=== PATIENT | female | born 1930 | race Caucasian/White ===

== ENCOUNTER → 2017-02-04 | Outpatient (CLI) | payer MEDICARE, BC ==
[2016-02-24 09:08] VITALS: BP 132/57
[~2017-02-04] MED LIST: ACET500T33 PO; ALBU0.63 NEB; AMLO5TAB2 PO; ASPI325T4 PO; CEFP200T PO; CEPH-264 PO; FLUT1AER INH; GABA-586 PO; GARL1TAB PO; LEVO125T5 PO; LEVO75TA PO; LISI40TA PO; MECL12.52 PO; MULT-658 PO; NEBI10TA3 PO; NITR0.4T6 SL
--- NOTE | 2017-02-04 16:20 | RAD ---
Indication fall, pain. AP and frog leg views of the right hip were obtained. Orthopedic screws are noted extending through the intertrochanteric area into the head. No complication is seen. No acute bony finding is apparent IMPRESSION: No acute finding
--- NOTE | 2017-02-04 16:33 | RAD ---
Indication fall, pain. AP and frog leg views of the left hip were obtained. Orthopedic screws are noted in the hip joint. No complication is seen. No acute bony finding is apparent. IMPRESSION: No acute finding
--- NOTE | 2017-02-04 16:36 | RAD ---
Indication fall. Pain. Internally and externally rotated views of the left shoulder as well as a Y view were obtained. No acute or significant bony finding is seen
== END | disposition home or self-care (01) ==
LOC: DXRAD 15:41
PROVIDERS: ATTEND Nurse Practitioner Family
DX: M25.551 Pain in right hip (principal); M25.552 Pain in left hip; M25.512 Pain in left shoulder; W19.XXXD Unspecified fall, subsequent encounter
CPT/HCPCS: 73030; 73502

== ENCOUNTER → 2017-04-11 | Outpatient (CLI) | payer MEDICARE, BC ==
[2016-02-24 09:08] VITALS: BP 132/57
[~2017-04-11] MED LIST changes: -ASPI325T4 PO; +ASPI325T8 PO; +NITR0.4T22 SL; -NITR0.4T6 SL
--- NOTE | 2017-04-11 16:19 | RAD ---
Right knee, 3 views, 04/11/2017: History: Fall, acute right knee pain The bony structures are demineralized. There is mild marginal spurring at the knee joint and at the patellofemoral articulation. Chondrocalcinosis is present. No fracture or dislocation is identified. No joint effusion is seen. Arterial calcifications are noted. IMPRESSION: 1. Demineralization. 2. Degenerative change with chondrocalcinosis. 3. No acute bony abnormality is detected.
== END | disposition home or self-care (01) ==
LOC: DXRADRC 11:35
PROVIDERS: ATTEND Nurse Practitioner Family
DX: M11.261 Other chondrocalcinosis, right knee (principal); M81.0 Age-related osteoporosis without current pathological fracture; Z91.81 History of falling
CPT/HCPCS: 73562

== ENCOUNTER → 2017-08-04 | Outpatient (CLI) | payer MEDICARE, BC ==
[2016-02-24 09:08] VITALS: BP 132/57
[~2017-08-04] MED LIST changes: -GARL1TAB PO; +GARL1TAB2 PO
--- NOTE | 2017-08-04 16:15 | RAD ---
DATE: August 04, 2017 EXAM: MAMMO SHILPA SCREEN LT HISTORY: History of right mastectomy 27 years ago for breast cancer. COMPARISON: 2014 and 2015 This study was interpreted with the benefit of Computerized Aided Detection (CAD). 2-D digital mammographic views of the left breast were performed in the CC and MLO projections. 3-D digital tomosynthesis of the left breast was performed in the CC and MLO projections and reviewed on a computer workstation. FINDINGS: The breast parenchyma is heterogeneously dense. There are no new dominant suspicious masses, suspicious microcalcifications or evidence of architectural distortion. IMPRESSION: Stable mammogram of the left breast. There are no mammographic indicators for malignancy on the left side. BI-RADS CATEGORY: 1 NEGATIVE RECOMMENDED FOLLOW-UP: 12M 12 MONTH FOLLOW-UP PQRS compliance statement: Patient information was entered into a reminder system with a target due date August 05, 2018 for the next mammogram. Mammography is a sensitive method for finding small breast cancers, but it does not detect them all and is not a substitute for careful clinical examination. A negative mammogram does not negate a clinically suspicious finding and should not result in delay in biopsying a clinically suspicious abnormality. "Our facility is accredited by the [employer] Mammography Program." The patient's breast density may affect the ability of mammography to detect breast cancer. There are 4 categories of breast density, A, B, C and D. Breast density A means that most of the breast tissue is replaced with adipose tissue and therefore is not dense. Breast density B means that the breast tissue is mildly dense and scattered. Breast density C means that the breast tissue is heterogeneously dense. Breast density D means that the breast tissue is very dense. Breast densities especially C and D may decrease the sensitivity of mammography to detect breast cancer. Therefore, the patient may benefit from 3-D breast mammography (3D breast tomography) as a part of their screening mammogram. Insurance may or may not pay for this additional imaging. The patient's breast density based on today's mammogram is category C.
== END | disposition home or self-care (01) ==
LOC: MAMMO 13:08
PROVIDERS: ATTEND Family Medicine
DX: Z12.31 Encounter for screening mammogram for malignant neoplasm of breast (principal); Z85.3 Personal history of malignant neoplasm of breast; Z90.11 Acquired absence of right breast and nipple
CPT/HCPCS: 77063; G0202; 77067

== ENCOUNTER 2020-09-07 16:21 | Emergency (ER) | payer MEDICARE, BC ==
[~2020-09-07] VITALS: Ht 165.1 cm; Wt 63.0 kg
[~2020-09-07 16:21] MED LIST changes: +AMLO-186 PO; -AMLO5TAB2 PO; -MECL12.52 PO; +MECL12.573 PO
--- NOTE | 2020-09-07 17:12 | PHYS DOC ---
Past History Past Medical History: CAD, Cancer, Diabetes, Hypertension, Hypothyroid, OR, Other Past Surgical History: Cancer Surgery, Other Additional Past Surgical Histo: hip surg Alcohol Use: None Drug Use: None Adult General Chief Complaint Chief Complaint: HAND PROBLEM HPI HPI Patient is a 89-year-old female presents to the emergency department today complaining of left hand pain after a fall. Patient states she tripped and fell coming out of her hair appointment today just prior to her arrival. Patient states that she skinned up her hands so she put Band-Aids on them prior to her arrival. Patient denies loss of consciousness, denies head pain or neck pain, denies pain to other extremities. Patient denies any other complaints or physical symptoms. Review of Systems Review of Systems 14 body systems of review of systems have been reviewed. See HPI for pertinent positives and negative responses, otherwise all other systems are negative, nonpertinent or noncontributory. Current Medications Current Medications The nursing documentation for updated med list. Allergies Allergies Allergies Coded Allergies Type Severity Reaction Last Updated Verified Penicillins Allergy Intermediate 02/22/16 Yes ciprofloxacin Allergy Intermediate 02/22/16 Yes morphine Allergy Intermediate 02/22/16 Yes Physical Exam Physical Exam Constitutional: Well developed, well nourished, no acute distress, non-toxic appearance. HENT: Normocephalic, atraumatic, bilateral external ears normal, oropharynx moist, no oral exudates, nose normal. Approximately 4 cm in diameter hematoma to the forehead superior aspect just to the right of center line just inferior to the hairline, patient states it does not hurt but she knows it is there, patient did adamantly admit again she did not lose consciousness. Eyes: PERRLA, EOMI, conjunctiva normal, no discharge. Neck: Normal range of motion, no tenderness, supple, no stridor. Cardiovascular:Heart rate regular rhythm, no murmur Lungs & Thorax: Bilateral breath sounds clear to auscultation Abdomen: Bowel sounds normal, soft, no tenderness, no masses, no pulsatile masses. Skin: Warm, dry, no erythema, no rash. Minor less than 2 mm abrasions to the left thumb, right thumb, left pinky finger. Non bleeding, no signs of infectious process. Back: No tenderness, no CVA tenderness. Extremities: No tenderness, no cyanosis, no clubbing, ROM intact, no edema. Swelling to the left middle finger middle phalangeal area distal cap refill less than 2 seconds, no loss of movement or sensation, full AROM/PROM. Pain to palpation of the right distal humerus, no deformity noted, no crepitus noted. Neurologic: Alert and oriented X 3, normal motor function, normal sensory function, no focal deficits noted. Psychologic: Affect normal, judgement normal, mood normal. Current Patient Data Vital Signs Vital Signs Date Time Temp Pulse Resp B/P (MAP) Pulse Ox O2 Delivery O2 Flow Rate FiO2 09/07/20 16:21 98.9 95 20 167/105 (125) 90 Room Air Lab Results Laboratory Tests Test 09/07/20 17:26 09/07/20 18:08 09/07/20 19:45 White Blood Count 13.4 x10^3/uL Red Blood Count 4.37 x10^6/uL Hemoglobin 12.9 g/dL Hematocrit 39.8 % Mean Corpuscular Volume 91 fL Mean Corpuscular Hemoglobin 29 pg Mean Corpuscular Hemoglobin Concent 32 g/dL Red Cell Distribution Width 13.2 % Platelet Count 328 x10^3/uL Neutrophils (%) (Auto) 69 % Lymphocytes (%) (Auto) 23 % Monocytes (%) (Auto) 6 % Eosinophils (%) (Auto) 2 % Basophils (%) (Auto) 1 % Neutrophils # (Auto) 9.2 x10^3uL Lymphocytes # (Auto) 3.1 x10^3/uL Monocytes # (Auto) 0.8 x10^3/uL Eosinophils # (Auto) 0.3 x10^3/uL Basophils # (Auto) 0.1 x10^3/uL Sodium Level 129 mmol/L Potassium Level 6.5 mmol/L 4.5 mmol/L Chloride Level 95 mmol/L Carbon Dioxide Level 27 mmol/L Anion Gap 7 Blood Urea Nitrogen 12 mg/dL Creatinine 0.9 mg/dL Estimated GFR (Cockcroft-Gault) 59.1 Glucose Level 181 mg/dL Calcium Level 9.0 mg/dL Troponin I Quantitative < 0.017 ng/mL Urine Collection Type Unknown Urine Color Straw Urine Clarity Clear Urine pH 5.5 Urine Specific Arona 1.025 Urine Protein Neg Urine Glucose (UA) Neg mg/dL Urine Ketones (Stick) Trace mg/dL Urine Blood Neg Urine Nitrite Neg Urine Bilirubin Neg Urine Urobilinogen Dipstick 0.2 mg/dL Urine Leukocyte Esterase Neg Urine RBC 6-10 /HPF Urine WBC 1-4 /HPF Urine Squamous Epithelial Cells None /LPF Urine Bacteria 0 /HPF Current Medications Medications (Trade) Dose Ordered Sig/Jennifer Route PRN Reason Start Time Stop Time Status Last Admin Dose Admin Acetaminophen (Tylenol) 1,000 mg 1X ONCE PO 09/07/20 20:00 09/07/20 20:01 DC 09/07/20 20:11 EKG EKG EKG performed at 1730 by house respiratory therapy staff, heart rate 88 bpm, normal sinus rhythm without ectopy, [place] interval 0.184, QTc interval 0.412, no STEMI, no ischemia, no ACS noted, EKG interpreted by ED attending Dr. Guadarrama Radiology/Procedures Radiology/Procedures []STATUS: REG ERORD. PHYSICIAN: JOHN FERGUSON APRN REASON: FALL, FOREHEAD TRAUMA/CONTUSION PROCEDURE: CT HEAD AND CERVICAL SPINE WO Exam: CT head and cervical spine INDICATION: Fall, forehead trauma TECHNIQUE: Sequential axial images through the head and cervical spine were obtained without the administration of IV contrast. Comparisons: None FINDINGS: Head: No focal parenchymal lesion or hemorrhage is identified. There is no midline shift or sulcal effacement. Patchy hypodensity in the periventricular white matter. 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 No acute vascular territory infarction is identified. Floyd-white distinction is preserved. The ventricular system is within normal limits without compression hydrocephalus. The basal cisterns are well maintained. Extracranial soft tissue scalp contusion overlying the right frontal region. The visualized portions of the paranasal sinuses and mastoid air cells are well-pneumatized. No acute fractures. Cervical spine: Vertebral body heights and alignment are well-maintained. Fracture to the cervical spine is identified. Multilevel spondylotic change in cervical spine with degenerative disc disease greatest at C4-C5 and C5-C6. Visualized paraspinal soft tissues are unremarkable. IMPRESSION: 1. Extracranial soft tissue scalp contusion overlying the right frontal region. No underlying osseous or intracranial abnormality. 2. Negative CT C-spine for acute traumatic injury. Exposure: One or more of the following in the visualized dose reduction techniques were utilized for this examination: 1. Automated exposure control 2. Adjustment of the MA and/or KV according to patient size Use of iterative of reconstructive technique Electronically signed by: Jerry Zavala MD (09/07/2020 6:14 PM) [facility] DI[facility] AND SIGNED BY: JERRY ZAVALA MD DATE: 09/07/201813 CC: JOHN FERGUSON APRN; SHELBI GUADARRAMA DO; EDWIN LAWTON MD ~MTH0 0 STATUS: REG ER ORD. PHYSICIAN: JOHN FERGUSON APRN REASON: FALL, DISTAL HUMERAL PAIN PROCEDURE: HUMERUS RIGHT Exam: Right humerus 2 views INDICATION: Fall, distal humerus TECHNIQUE: Frontal and lateral views of the right humeral Comparisons: None FINDINGS: Bone mineralization is normal. No acute or healed fractures. Soft tissues are unremarkable. Joint spaces are well-maintained. IMPRESSION: No acute osseous abnormality. Electronically signed by: Jerry Zavala MD (09/07/2020 7:05 PM) [facility] DI[facility]ATED AND SIGNED BY: JERRY ZAVALA MD DATE: 09/07/201904 CC: JOHN FERGUSON APRN; SHELBI GUADARRAMA DO; EDWIN LAWTON MD ~MTH0 0 STATUS: REG ER ORD. PHYSICIAN: JOHN FERGUSON APRN REASON: FALL, MIDDLE FINGER SWELLING PROCEDURE: HAND RIGHT 3V HAND RIGHT 3V Clinical Indication: Reason: FALL, MIDDLE FINGER SWELLING / Spl. Instructions: pt unable to remove ring from hand / History: Comparison: None. Findings: There is acute traumatic longitudinal fracture involving the distal neck and the midshaft of the fourth metacarpal. No intra-articular extension is seen. The fracture is nondisplaced. No dorsal soft tissue swelling of the hand. There is mild arthropathy of the hand for patient age. There is diffuse demineralization. There is mild soft tissue swelling of the third finger. IMPRESSION: 1. Acute traumatic nondisplaced fracture of the fourth metacarpal. Electronically signed by: Estiven Rose MD (09/07/2020 7:01 PM) [facility] DICTATED AND SIGNED BY: ESTIVEN ROSE MD DATE: 09/07/201900 CC: JOHN FERGUSON APRN; SHELBI GUADARRAMA DO; EDWIN LAWTON MD ~MTH0 0 REASON: FALL, LOW O2 SAT PROCEDURE: CHEST PA & LATERAL CHEST PA LATERAL History: Reason: FALL, LOW O2 SAT / Spl. Instructions: ER did not remove bra from pt. / History: Comparison: Two-view chest, February 23, 2016. Findings: There is coronary artery disease. Atherosclerotic abdominal aorta. Cardiac size is normal. There are diffuse interstitial opacities, similar to prior study. Calcified granuloma right upper lung. No pleural effusion or pneumothorax. Right axillary surgical clips. Diffuse demineralization. Exaggerated thoracic kyphosis. IMPRESSION: Diffuse interstitial opacities are similar to the prior study. Considerations include pulmonary edema, interstitial pneumonia, and there may be a component of chronic interstitial lung disease. Electronically signed by: Estiven Rose MD (09/07/2020 6:59 PM) [facility] DICTATED AND SIGNED BY: ESTIVEN ROSE MD DATE: 09/07/201858 CC: JOHN FERGUSON APRN; SHELBI GUADARRAMA DO; EDWIN LAWTON MD ~MTH0 0 Heart Score Risk Factors: Risk Factors: DM, Current or recent (<one month) smoker, HTN, HLP, family history of CAD, obesity. Risk Scores: Risk Factors: DM, Current or recent (<one month) smoker, HTN, HLP, family history of CAD, obesity. Course & Med Decision Making Course & Med Decision Making Pertinent Labs and Imaging studies reviewed. (See chart for details) 89-year-old female, vital signs reviewed, work-up initiated for fall, it was unclear whether the fall was a mechanical trip or syncopal type episode. An EKG, chest x-ray, CT head and C-spine without, lab work, urinalysis was initiated in the emergency department today. Initial chemistry result reported a elevated potassium most likely related to hemolyzation, lab was redrawn and reordered for repeat potassium. Awaiting pending x-ray and lab results. Related to swelling of the left middle finger, recommended to patient cutting her ring off to allow for swelling of her digit. Patient was agreeable to this, ring was cut out per ED nursing staff patient gave verbal permission. Also related to add acute nondisplaced fracture of the fourth metacarpal, a volar splint was placed on the left upper extremity. Lab results returned and complete, vital signs reviewed, concerning for dehydration, low sodium, discussed with patient hospital admission and IV insertion for medication administration, patient has refused these recommendations, patient states that she wants to go home. Discussed with patient leaving AGAINST MEDICAL ADVICE, risk versus benefits of hospital admission versus leaving AGAINST MEDICAL ADVICE. Is of my opinion that the patient is alert and oriented x3, is stable and able to make her own educated medical decisions. Patient states she will go home and increase her water intake, will follow up with her doctor tomorrow, will follow up with orthopedic surgeon tomorrow. I urged patient to stay in the ER and get further care, patient elected to go home, patient discharged home, patient gave verbal understanding of strict return to emergency department precautions and concerns. Patient left this emergency department AMA. Amrit Disclaimer Dragon Disclaimer This electronic medical record was generated, in whole or in part, using a voice recognition dictation system. Departure Departure: Impression: Primary Impression: Fall Additional Impressions: Head contusion Multiple abrasions Metacarpal bone fracture Abnormal chest xray Dehydration Left against medical advice Disposition: 01 DC HOME SELF CARE/HOMELESS Condition: IMPROVED Referrals: EDWIN LAWTON MD (PCP) Patient Instructions: Abrasions, Cast or Splint Care, Head Injury, Adult Additional Instructions: Please keep your abrasions clean and dry, follow-up with an orthopedic doctor soon call tomorrow for appointment, do not remove splint until seen by orthopedic doctor, see your doctor soon related to your fall and abnormal chest x-ray. Please return to the emergency department for worsening symptoms or other concerns. EMERGENCY DEPARTMENT GENERAL DISCHARGE INSTRUCTIONS Thank you for coming to [facility] (ED) today and trusting us with you care. We trust that you had a positivie experience in our Emergency Department. If you wish to speak to the department management, you may call the director at [phone]. YOUR FOLLOW UP INSTRUCTIONS ARE FOLLOWS: 1. Do you have a private Doctor? If you do not have a private doctor, please ask for a resource list of physicians or clinics that may be able to assist you with follow up care. 2. The Emergency Physician has interpreted your x-rays. The X-Ray specialist will also review them. If there is a change in the findings, you will be notified in 48 hours when at all possible. 3. A lab test or culture has been done, your results will be reviewed and you will be notified if you need a change in treatment. ADDITIONAL INSTRUCTIONS AND INFORMATION: 1. Your care today has been supervised by a physician who is specially trained in emergency care. Many problems require more than one evaluation for a complete diagnosis and treatment. We recommend that you schedule your follow up appointment as recommended to ensure complete treatment of you illness or injury. If you are unable to obtain follow up care and continue to have a problem, or if your condition worsens, we recommend that you return to the ED. 2. We are not able to safely determine your condition over the phone nor are we able to give sound medical advice over the phone. For these safety reasons, if you call for medical advice we will ask you to come to the ED for further evaluation. 3. If you have any questions regarding these discharge instructions please call the ED at [phone]. SAFETY INFORMATION: In the interest of safety, wellness, and injury prevention; we encourage you to wear your sealbelt, if you smoke; quite smoking, and we encourage family to use a protective helmet for bicycling and other sporting events that present an increased risk for head injury. IF YOUR SYMPTOMS WORSEN OR NEW SYMPTOMS DEVELOP, OR YOU HAVE CONCERNS ABOUT YOUR CONDITION; OR IF YOUR CONDITION WORSENS WHILE YOU ARE WAITING FOR YOUR FOLLOW UP APPOINTMENT; EITHER CONTACT YOUR PRIMARY CARE DOCTOR, THE PHYSICIAN WHOSE NAME AND NUMBER YOU WERE GIVEN, OR RETURN TO THE ED IMMEDIATELY. Scripts Bacitracin (Bacitracin) 28.4 Gm Oint...g. 28.4 GM TP TID for FOR ABRASIONS, #1 MISC 0 Refills Prov: JOHN FERGUSON APRN 09/07/20 Problem Qualifiers Primary Impression: Fall Encounter type: initial encounter Qualified Codes: W19.XXXA - Unspecified fall, initial encounter Additional Impressions: Head contusion Encounter type: initial encounter Contusion of head detail: other part of head Qualified Codes: S00.83XA - Contusion of other part of head, initial encounter Metacarpal bone fracture Encounter type: initial encounter Metacarpal bone: fourth Fracture type: closed Metacarpal location: shaft Fracture alignment: nondisplaced Laterality: left Qualified Codes: S62.355A - Nondisplaced fracture of shaft of fourth metacarpal bone, left hand, initial encounter for closed fracture JOHN FERGUSON MOTION PICTURE PRINTER Sep 07, 2020 17:12
[2020-09-07 17:51] LABS: CREATININE 0.9 mg/dL (0.6-1.0); GFR 59.1
[2020-09-07 17:54] LABS: POTASSIUM 6.5 mmol/L (3.5-5.1)
--- NOTE | 2020-09-07 18:17 | RAD ---
Exam: CT head and cervical spine INDICATION: Fall, forehead trauma TECHNIQUE: Sequential axial images through the head and cervical spine were obtained without the administration of IV contrast. Comparisons: None FINDINGS: Head: No focal parenchymal lesion or hemorrhage is identified. There is no midline shift or sulcal effacement. Patchy hypodensity in the periventricular white matter. 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 No acute vascular territory infarction is identified. Floyd-white distinction is preserved. The ventricular system is within normal limits without compression hydrocephalus. The basal cisterns are well maintained. Extracranial soft tissue scalp contusion overlying the right frontal region. The visualized portions of the paranasal sinuses and mastoid air cells are well-pneumatized. No acute fractures. Cervical spine: Vertebral body heights and alignment are well-maintained. Fracture to the cervical spine is identified. Multilevel spondylotic change in cervical spine with degenerative disc disease greatest at C4-C5 and C5-C6. Visualized paraspinal soft tissues are unremarkable. IMPRESSION: 1. Extracranial soft tissue scalp contusion overlying the right frontal region. No underlying osseous or intracranial abnormality. 2. Negative CT C-spine for acute traumatic injury. Exposure: One or more of the following in the visualized dose reduction techniques were utilized for this examination: 1. Automated exposure control 2. Adjustment of the MA and/or KV according to patient size Use of iterative of reconstructive technique Electronically signed by: Jerry Gale MD (09/07/2020 6:14 PM) [facility]
[2020-09-07 18:22] LABS: BASO # 0.1 x10^3/uL (0.0-0.2); BASO % 1 % (0-3); EOS # 0.3 x10^3/uL (0.0-0.7); EOS % 2 % (0-3); HEMATOCRIT 39.8 % (36.0-47.0); HEMOGLOBIN 12.9 g/dL (12.0-15.5); LYMPH # 3.1 x10^3/uL (1.0-4.8); LYMPH % 23 % (24-48); MEAN CORPUSCULAR HEMOGLOBIN 29 pg (25-35); MEAN CORPUSCULAR HGB CONC 32 g/dL (31-37); MEAN CORPUSCULAR VOLUME 91 fL (79-100); MONO # 0.8 x10^3/uL (0.0-1.1); MONO % 6 % (0-9); NEUT # 9.2 x10^3uL (1.8-7.7); NEUT % 69 % (31-73); PLATELET COUNT 328 x10^3/uL (140-400); RED BLOOD COUNT 4.37 x10^6/uL (3.50-5.40); RED CELL DISTRIBUTION WIDTH 13.2 % (11.5-14.5); WHITE BLOOD COUNT 13.4 x10^3/uL (4.0-11.0)
--- NOTE | 2020-09-07 19:02 | RAD ---
CHEST PA LATERAL History: Reason: FALL, LOW O2 SAT / Spl. Instructions: ER did not remove bra from pt. / History: Comparison: Two-view chest, February 23, 2016. Findings: There is coronary artery disease. Atherosclerotic abdominal aorta. Cardiac size is normal. There are diffuse interstitial opacities, similar to prior study. Calcified granuloma right upper lung. No pleural effusion or pneumothorax. Right axillary surgical clips. Diffuse demineralization. Exaggerated thoracic kyphosis. IMPRESSION: Diffuse interstitial opacities are similar to the prior study. Considerations include pulmonary edema, interstitial pneumonia, and there may be a component of chronic interstitial lung disease. Electronically signed by: Estiven Rose MD (09/07/2020 6:59 PM) [facility]
--- NOTE | 2020-09-07 19:04 | RAD ---
HAND RIGHT 3V Clinical Indication: Reason: FALL, MIDDLE FINGER SWELLING / Spl. Instructions: pt unable to remove ring from hand / History: Comparison: None. Findings: There is acute traumatic longitudinal fracture involving the distal neck and the midshaft of the fourth metacarpal. No intra-articular extension is seen. The fracture is nondisplaced. No dorsal soft tissue swelling of the hand. There is mild arthropathy of the hand for patient age. There is diffuse demineralization. There is mild soft tissue swelling of the third finger. IMPRESSION: 1. Acute traumatic nondisplaced fracture of the fourth metacarpal. Electronically signed by: Estiven Rose MD (09/07/2020 7:01 PM) [facility]
--- NOTE | 2020-09-07 19:08 | RAD ---
Exam: Right humerus 2 views INDICATION: Fall, distal humerus TECHNIQUE: Frontal and lateral views of the right humeral Comparisons: None FINDINGS: Bone mineralization is normal. No acute or healed fractures. Soft tissues are unremarkable. Joint spaces are well-maintained. IMPRESSION: No acute osseous abnormality. Electronically signed by: Jerry Gale MD (09/07/2020 7:05 PM) [facility]
[2020-09-07] MEDS ORDERED: ACETAMINOPHEN 500 MG TABLET PO ONE (20:00)
[2020-09-07] MEDS ORDERED: BACI28.43 TP (20:34)
[2020-09-07 20:45] VITALS: BP 200/89
[2020-09-07 20:57] LABS: BACTERIA,URINE 0 /HPF (0-FEW); BILIRUBIN,URINE NEG (NEG); CLARITY,URINE CLEAR; COLOR,URINE STRAW; GLUCOSE,URINE NEG (NEG); NITRITE,URINE NEG (NEG); UROBILINOGEN,URINE 0.2 mg/dL (0.2 mg/dL)
--- NOTE | 2020-09-08 09:01 | EKG ---
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
== END 2020-09-07 20:45 | disposition home or self-care (01) ==
LOC: ER 16:21
DX: S62.354A Nondisplaced fracture of shaft of fourth metacarpal bone, right hand, initial encounter for closed fracture (principal); S60.312A Abrasion of left thumb, initial encounter; S60.311A Abrasion of right thumb, initial encounter; S60.417A Abrasion of left little finger, initial encounter; E86.0 Dehydration; R93.1 Abnormal findings on diagnostic imaging of heart and coronary circulation; I25.10 Atherosclerotic heart disease of native coronary artery without angina pectoris; E11.9 Type 2 diabetes mellitus without complications; I10 Essential (primary) hypertension; E03.9 Hypothyroidism, unspecified; I25.2 Old myocardial infarction; Z88.0 Allergy status to penicillin; Z88.1 Allergy status to other antibiotic agents; Z88.5 Allergy status to narcotic agent; W01.0XXA Fall on same level from slipping, tripping and stumbling without subsequent striking against object, initial encounter; Y93.89 Activity, other specified; Y92.89 Other specified places as the place of occurrence of the external cause; Y99.8 Other external cause status
CPT/HCPCS: 29125; 36415; 70450; 71046; 72125; 73060; 73130; 80048; 81001; 84132; 84484; 85025; 93005; 99285-25

== ENCOUNTER → 2020-09-16 | Outpatient (CLI) | payer MEDICARE, BC ==
[2020-09-07 20:45] VITALS: BP 200/89
[~2020-09-16] MED LIST changes: +BACI28.43 TP
--- NOTE | 2020-09-16 13:45 | RAD ---
EXAM: Bilateral knees, 3 views. HISTORY: Pain. COMPARISON: 04/11/2000 FINDINGS: 3 views of both knees are obtained. There is mild bilateral medial compartment predominant spurring. There is enthesopathy along the superior patellae. There is no joint effusion. There are va scular calcifications. 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 Electronically signed by: Ivana Alfonso MD (09/16/2020 1:42 PM) [id number]
== END ==
LOC: DXRAD 12:53
PROVIDERS: ATTEND Specialist
DX: M17.0 Bilateral primary osteoarthritis of knee (principal); M76.52 Patellar tendinitis, left knee; M76.51 Patellar tendinitis, right knee
CPT/HCPCS: 73562

== ENCOUNTER → 2021-03-30 | Outpatient (CLI) | payer MEDICARE, BC ==
[~2021-03-30] MED LIST changes: -LISI40TA PO; +LISI40TA6 PO; -MECL12.573 PO; +MECL12.582 PO
--- NOTE | 2021-03-30 17:21 | RAD ---
Exam: Chest 2 view INDICATION: Chest pain TECHNIQUE: Frontal and lateral views of the chest Comparisons: 09/07/2020 FINDINGS: The cardiomediastinal silhouette and pulmonary vessels are within normal limits. The lung and pleural spaces are clear. Mild compression fractures involving the mid to lower thoracic spine, which appears similar when comp ared to prior. IMPRESSION: No acute cardiopulmonary process. Electronically signed by: Jerry Gale MD (03/30/2021 5:19 PM) DEO
== END ==
LOC: RAD 16:55
PROVIDERS: ATTEND Specialist
DX: R53.1 Weakness (principal); R07.9 Chest pain, unspecified
CPT/HCPCS: 71046

== ENCOUNTER 2021-05-01 09:58 | Inpatient (IN) | payer MEDICARE, BC ==
[~2021-05-01] VITALS: Ht 165.1 cm; Wt 48.8 kg
--- NOTE | 2021-05-01 10:27 | PHYS DOC ---
Past History Past Medical History: CAD, Cancer, Diabetes, Hypertension, Hypothyroid, RI, Other Past Surgical History: Cancer Surgery, Other Additional Past Surgical Histo: hip surg Alcohol Use: None Drug Use: None General Adult EDM: Chief Complaint: ABNORMAL LABS Problems: (1) Fatigue HPI: HPI: 89-year-old female with a history of hypothyroid, hypertension, CAD presents to the emergency department complaining of fatigue and diffuse weakness for the past 3 weeks. The reports the patient recently was taken off all of her home medications as of last week by her primary care doctor and has had several medication adjustments over the past 1 month. He states that the patient has been sleeping about 90% of the time at home, has less appetite than usual but is otherwise alert and responsive. He also reports several intermittent falls over the last several months but none acutely. The patient states at the moment she has no symptoms. The patient denies nausea, vomiting, fever, chills, chest pain, shortness of breath, abdominal pain, urinary symptoms, cough, recent trauma, or any other complaints. The patient has been vaccinated for coronavirus with Moderna vaccine Review of Systems: Review of Systems: Constitutional: Admits to fatigue, denies fever. Eyes: Denies change in vision, pain. HENT: Denies congestion or sore throat. Respiratory: Denies cough or shortness of breath. Cardiovascular: Denies chest pain or edema. GI: Denies abdominal pain, nausea. : Denies change in urination, dysuria. Musculoskeletal: Denies extremity pain, or trauma. Skin: Denies rash, skin change. Neurologic: Denies headache, focal weakness. Psychiatric: Denies depression or anxiety. All other systems reviewed as negative except for what was mentioned in the HPI. Family History: Family History: Noncontributory Current Medications: Current Meds: Current Medications Medications (Trade) Dose Ordered Sig/Jennifer Route PRN Reason Start Time Stop Time Status Last Admin Dose Admin Aspirin (Bill Aspirin) 325 mg 1X ONCE PO 05/01/21 12:00 05/01/21 12:01 DC 05/01/21 11:58 Allergies: Allergies: Allergies Coded Allergies Type Severity Reaction Last Updated Verified Penicillins Allergy Intermediate 02/22/16 Yes ciprofloxacin Allergy Intermediate 02/22/16 Yes morphine Allergy Intermediate 02/22/16 Yes Physical Exam: PE: Constitutional: No acute distress, non-toxic appearance. HENT: Atraumatic, bilateral external ears normal, nose normal. Eyes: PERRLA, EOMI, conjunctiva normal, no discharge. Neck: Normal range of motion, no tenderness, supple, no stridor. Cardiovascular: Heart rate regular rhythm. 2+ radial pulses Lungs & Thorax: No respiratory distress, symmetrical expansion. Bilateral breath sounds clear to auscultation Abdomen: Soft, no tenderness Skin: Warm, dry. Extremities: No tenderness, no cyanosis, ROM intact, no edema. Neurologic: Alert and oriented X 3, normal motor function, normal sensory function, no focal deficits noted. Non ataxic gait. GCS 15. Psychologic: Affect normal, judgment normal, mood normal. Current Patient Data: Labs: Laboratory Tests Test 05/01/21 10:30 White Blood Count 11.2 x10^3/uL (4.0-11.0) H Red Blood Count 5.06 x10^6/uL (3.50-5.40) Hemoglobin 15.4 g/dL (12.0-15.5) Hematocrit 45.7 % (36.0-47.0) Mean Corpuscular Volume 90 fL (79-100) Mean Corpuscular Hemoglobin 30 pg (25-35) Mean Corpuscular Hemoglobin Concent 34 g/dL (31-37) Red Cell Distribution Width 13.6 % (11.5-14.5) Platelet Count 228 x10^3/uL (140-400) Neutrophils (%) (Auto) 66 % (31-73) Lymphocytes (%) (Auto) 25 % (24-48) Monocytes (%) (Auto) 8 % (0-9) Eosinophils (%) (Auto) 0 % (0-3) Basophils (%) (Auto) 1 % (0-3) Neutrophils # (Auto) 7.4 x10^3uL (1.8-7.7) Lymphocytes # (Auto) 2.8 x10^3/uL (1.0-4.8) Monocytes # (Auto) 0.8 x10^3/uL (0.0-1.1) Eosinophils # (Auto) 0.0 x10^3/uL (0.0-0.7) Basophils # (Auto) 0.1 x10^3/uL (0.0-0.2) Sodium Level 129 mmol/L (136-145) L Potassium Level 5.3 mmol/L (3.5-5.1) H Chloride Level 94 mmol/L (98-107) L Carbon Dioxide Level 23 mmol/L (21-32) Anion Gap 12 (6-14) Blood Urea Nitrogen 56 mg/dL (7-20) H Creatinine 1.6 mg/dL (0.6-1.0) H Estimated GFR (Cockcroft-Gault) 30.3 Glucose Level 168 mg/dL (70-99) H Calcium Level 10.0 mg/dL (8.5-10.1) Magnesium Level 2.4 mg/dL (1.8-2.4) Troponin I Quantitative 0.018 ng/mL (0-0.055) YX-Izh-X-Type Natriuretic Peptide 856 pg/mL (0-449) H Vital Signs: Vital Signs Date Time Temp Pulse Resp B/P (MAP) Pulse Ox O2 Delivery O2 Flow Rate FiO2 05/01/21 10:05 98.4 101 16 143/69 95 Room Air EKG: EKG: EKG 1047: Sinus tachycardia rate of 113, isolated ST elevation in V2 with promi nent Q-wave, no reciprocal changes are noted, left axis deviation, [normal RI, QRS, and QTc intervals]. Impression: Code STEMI was paged after EKG was seen by me at 1147 interpreted by Andra ojeda D.O. Repeat EKG performed at 1133: Normal sinus rhythm rate of 94, similar ST elevation in V2 with prominent Q-wave, [no ectopic beats], [normal axis], [normal RI, QRS, and QTc intervals]. Impression: No acute change compared to above interpreted by Andra ojeda D.O. both EKGs were reviewed by Dr. Andre atkinson at 1155 Radiology/Procedures: Radiology/Procedures: Single view of the chest. 05/01/2021 10:26 AM Indication: Reason: weakness / Spl. Instructions: / History: Comparison: Chest radiograph March 22, 2021 Findings: There is no pneumothorax, pleural effusion, or new focal infiltrate. Diffuse interstitial coarsening is similar. Calcified granuloma in the right upper lung is similar. Heart size is normal. Coronary stent noted. Aortic calcification noted. No acute osseous changes are identified. IMPRESSION: 1.No evidence of acute cardiopulmonary process or acute change from prior exam 2. Chronic interstitial thickening. Electronically signed by: Miguel Schafer MD (05/01/2021 10:47 AM) Heart Score: C/O Chest Pain: No Course & Med Decision Making: Course & Med Decision Making Patient was seen with nonspecific complaints including fatigue and lack of appetite. She adamantly denied any shortness of breath or chest pain. An EKG was performed at 1047. I did not see the EKG until 1147. Upon reviewing the EKG at that time, I called a code STEMI because of ST elevation in V2 without reciprocal change. The patient at the time of review of the first EKG did not have chest pain or signs of ACS. I discussed the case with Dr. Cuellar who also reviewed the EKGs, he made decision to cancel code STEMI, recommended admission and cardiology consult. ASA was given. Patient has a initial troponin of 0.018. I discussed case with Dr. Hawkins who will admit the patient Departure Departure: Impression: Primary Impression: Fatigue Disposition: ADMITTED INPATIENT Admitting Physician: Mani Hawkins Condition: STABLE Referrals: EDWIN LAWTON MD (PCP) ANDRA VALENTINE DO May 01, 2021 10:27
--- NOTE | 2021-05-01 10:50 | RAD ---
Single view of the chest. 05/01/2021 10:26 AM Indication: Reason: weakness / Spl. Instructions: / History: Comparison: Chest radiograph March 22, 2021 Findings: There is no pneumothorax, pleural effusion, or new focal infiltrate. Diffuse interstitial c oarsening is similar. Calcified granuloma in the right upper lung is similar. Heart size is normal. C oronary stent noted. Aortic calcification noted. No acute osseous changes are identified. IMPRESSION: 1.No evidence of acute cardiopulmonary process or acute change from prior exam 2. Chronic interstitial thickening. Electronically signed by: Miguel Schafer MD (05/01/2021 10:47 AM) [id number]
[2021-05-01 10:58] LABS: BASO # 0.1 x10^3/uL (0.0-0.2); BASO % 1 % (0-3); EOS % 0 % (0-3); HEMATOCRIT 45.7 % (36.0-47.0); HEMOGLOBIN 15.4 g/dL (12.0-15.5); LYMPH # 2.8 x10^3/uL (1.0-4.8); LYMPH % 25 % (24-48); MEAN CORPUSCULAR HEMOGLOBIN 30 pg (25-35); MEAN CORPUSCULAR HGB CONC 34 g/dL (31-37); MEAN CORPUSCULAR VOLUME 90 fL (79-100); MONO # 0.8 x10^3/uL (0.0-1.1); MONO % 8 % (0-9); NEUT # 7.4 x10^3uL (1.8-7.7); NEUT % 66 % (31-73); PLATELET COUNT 228 x10^3/uL (140-400); RED BLOOD COUNT 5.06 x10^6/uL (3.50-5.40); RED CELL DISTRIBUTION WIDTH 13.6 % (11.5-14.5); WHITE BLOOD COUNT 11.2 x10^3/uL (4.0-11.0)
[2021-05-01 11:05] LABS: CREATININE 1.6 mg/dL (0.6-1.0); GFR 30.3; POTASSIUM 5.3 mmol/L (3.5-5.1)
--- NOTE | 2021-05-01 11:07 | EKG ---
[address] [address] Test Date: 2021-05-01 Test Time: 10:47:04 Pat Name: LUCIA LONG Department: Room: Gender: F Senior Care Provider: ELAINE : 1930 Requested By: ANDRA VALENTINE Order Number: [id number] Reading MD: Measurements Intervals [place] Rate: 113 P: 97 MD: 180 QRS: -33 QRSD: 72 T: 40 QT: 314 QTc: 436 Interpretive Statements SINUS TACHYCARDIA INTERPOLATED VENTRICULAR PREMATURE COMPLEX(ES) INTERPOLATED ATRIAL PREMATURE COMPLEX(ES) ABNORMAL LEFT AXIS DEVIATION QRS(T) CONTOUR ABNORMALITY CONSISTENT WITH ANTEROSEPTAL INFARCT AGE UNDETERMINED ABNORMAL ECG RI6.02 No previous ECG available for comparison
[2021-05-01 11:17] LABS: MAGNESIUM 2.4 mg/dL (1.8-2.4)
[2021-05-01] MEDS ORDERED: ASPIRIN 325 MG TABLET PO ONE (12:00)
--- NOTE | 2021-05-01 12:27 | EKG ---
[address] [address] Test Date: 2021-05-01 Test Time: 11:53:00 Pat Name: LUCIA LONG Department: Room: Gender: F Provisioning Specialist: : 1930 Requested By: ANDRA VALENTINE Order Number: [id number] Reading MD: Measurements Intervals [place] Rate: 94 P: 120 MO: 184 QRS: -22 QRSD: 76 T: 43 QT: 330 QTc: 418 Interpretive Statements SINUS RHYTHM LEFTWARD AXIS QRS(T) CONTOUR ABNORMALITY CONSISTENT WITH ANTEROSEPTAL INFARCT AGE UNDETERMINED ABNORMAL ECG RI6.02 No previous ECG available for comparison
[2021-05-01 12:40] LABS: BACTERIA,URINE MANY /HPF (0-FEW); BILIRUBIN,URINE NEG (NEG); CLARITY,URINE HAZY; COLOR,URINE YELLOW; GLUCOSE,URINE NEG (NEG); NITRITE,URINE NEG (NEG); RBC,URINE RARE /HPF (0-2); SQUAMOUS EPITHELIAL CELL,UR OCC /LPF; UROBILINOGEN,URINE 0.2 mg/dL (0.2 mg/dL)
[2021-05-01 14:49] VITALS: BP 152/79
[2021-05-01] MEDS: IV NORMAL SALINE 1,000ML 1,000 ML IV SCH (16:06)
--- NOTE | 2021-05-01 18:28 | HP ---
ADMIT DATE: 05/01/2021 HISTORY OF PRESENT ILLNESS: The patient is an 89-year-old female patient who presented to the Emergency Room with apparently abnormal labs as well as fatigue and diffuse weakness for the past 3 weeks. Her reported that the patient recently was taken off all of her home medications as of last week by her primary care doctor and had several medication adjustment over the past 1 month. He stated that the patient has been sleeping about 90% of the time at home, has less appetite than usual, but is otherwise alert and responsive. He also reported several intermittent falls over the last several months, but none acutely. The patient herself stated that at the moment, she has no symptoms. The patient denied any nausea or vomiting. Denied any diarrhea or abdominal pain. Denied any chest pain, shortness of breath, orthopnea or paroxysmal nocturnal dyspnea. Denied any cough, phlegm or hemoptysis. She apparently has been vaccinated for coronavirus with Moderna vaccine. She was extensively evaluated in the Emergency Room and has had lab work, which showed that her white cell count was slightly elevated, but otherwise her hemoglobin, hematocrit and platelets were normal. Her chemistry showed that her sodium was low at 129, potassium 5.3, chloride 94, bicarbonate 23, and anion gap of 12, BUN 56, creatinine 1.6. Her blood glucose was 168, calcium was 10. Magnesium was 2.4. Her beta natriuretic peptide was 856 and TSH was almost undetectable at 0.103. Urinalysis showed the urine was yellow, hazy with a pH of 5.5, specific gravity of 1.015, a small amount of protein. The urine was negative for glucose, trace of ketones, trace of blood, negative for nitrite, small amount of leukocyte esterase, rare rbc's, 11-20 wbc's and many bacteria. Did have a chest x-ray, which showed no pneumothorax, pleural effusion, no focal infiltrate. She has diffuse interstitial coarsening, similar calcified granulomas in the right upper lung, similar heart size is normal, coronary stents noted, artery calcification noted. No acute osseous changes identified. The impression is the patient has no evidence of acute cardiopulmonary process or acute change from prior exam. There is chronic interstitial thickening. The patient was admitted with fatigue, generalized weakness, poor appetite. Apparently, her EKG showed that she has slight elevation in V2 without reciprocal changes. The patient at the time of her first EKG did not have any chest pain or signs of acute coronary syndrome. Dr. Cuellar was contacted and reviewed the EKGs and he made a decision to consult code STEMI, recommended admission and Cardiology consult. Aspirin was given. Her initial troponin was less than 0.018. The patient was admitted to do 2 more sets of cardiac enzymes, check her lipid profile. I will also check some nonspecific inflammatory markers and T3, T4, free T4. TSH was almost undetectable and decide further management accordingly. Last time the patient was admitted in this hospital was in 2016. PAST MEDICAL HISTORY: Significant for coronary artery disease, status post stent deployment, hypertension, hyperlipidemia, type 2 diabetes mellitus. She is also known to have chronic obstructive pulmonary disease, although the patient herself stated that she has never smoked before. She is known to have chondromalacia patellae, peripheral neuropathy, left ankle fracture, hypothyroidism. She has breast cancer, status post right mastectomy. She has also skin cancer and according to her, she has bilateral cataract extraction, bilateral hip fracture status post open reduction internal fixation. ALLERGIES: SHE IS ALLERGIC TO PENICILLIN, CIPROFLOXACIN, AND MORPHINE AND SHE IS ALLERGIC ALSO TO VICODIN, WELCHOL AND MACROBID. PAST SURGICAL HISTORY: She apparently underwent also right hip fracture and left hip replacement. She also has colon resection and colostomy placement in the right lower quadrant. MEDICATIONS: She was on following medications: As of 10/20/2020, although apparently a lot of her medications have been changed or discontinued, she is on Nitrostat 0.4 mg sublingually every 5 minutes, aspirin 325 mg once a day, garlic 2 tablets once a day, multivitamin 1 tablet once a day, Neurontin 300 mg, she takes two capsules twice a day, meclizine 25 mg every 4-6 hours. She is on Flonase 1 spray to each nostril twice a day. She is on albuterol sulfate 2 puffs every 4 hours, she has Extra Strength Tylenol 500 mg 1 tablet every 4-6 hours. She is on diclofenac sodium 1% applies 4 grams topically twice daily. She is on lisinopril 20 mg once a day. Apparently all of her medication have been discontinued for some reason. FAMILY HISTORY: Noncontributory. SOCIAL HISTORY: She is and lives with her . She apparently has five children. She has never smoked, does not drink alcohol or recreational drugs. 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 REVIEW OF SYSTEMS: The patient denied any blurring of vision, has bilateral cataract extraction, denied any glaucoma or macular degeneration. Denied any earache, tinnitus or sensorineural deafness. Denied nosebleed, stuffy nose or postnasal drip. Denied any sore throat, sore tongue, toothache, hoarseness of voice or difficulty swallowing. Denied any nausea, vomiting, diarrhea or constipation. Denied any hematemesis, melena or hematochezia. Denied any dysuria, frequency or hematuria. Denied any chest pain, shortness of breath, orthopnea or paroxysmal nocturnal dyspnea. PHYSICAL EXAMINATION: GENERAL: When I examined her today, she looked somewhat cachectic, but there was no pallor, jaundice, cyanosis or thyromegaly. No jugular venous distention. No lower limb edema. VITAL SIGNS: Her heart rate was 87, blood pressure was 152/79, temperature was 98, respiratory rate was 16 and oxygen saturation was 94%. HEAD, EYES, EARS, NOSE, AND THROAT: Normocephalic, atraumatic. NECK: Supple. HEART: Showed normal first and second heart sounds, no gallop, rub or murmur. CHEST: Clear to auscultation. No crepitation or rhonchi. ABDOMEN: Scaphoid, soft with a colostomy in the right lower quadrant. There is no guarding or rigidity. No organomegaly. All hernial orifice intact. Bowel sounds normal. NEUROLOGIC: She is awake, alert, responding appropriately, although is very slow to respond. All her cranial nerves intact. She moves extremities without difficulty, although apparently she has unsteady gait. Her lab work on arrival showed a white cell count of 11,200, hemoglobin 15, hematocrit 45, MCV 90 and platelet count 228,000. Her chemistry showed a serum sodium of 129, potassium 5.3, chloride 94, bicarbonate 23, anion gap of 12, BUN 56, creatinine 1.6, estimated GFR was 30 mL per minute. Her glucose was 168, calcium was 10. Magnesium was 2.4. Her troponin was 0.018, beta natriuretic peptide was 856 and TSH was 0.103. Urinalysis showed the urine was yellow, hazy with a pH of 5.5, specific gravity of 1.015, a small amount of protein. The urine was negative for glucose. There was trace of ketones, trace of blood, small amount of leukocyte esterase, rare rbc's, 11-20 wbc's and many bacteria. Her chest x-ray showed no evidence of acute cardiopulmonary process or acute change from prior exam, chronic interstitial thickening. ASSESSMENT: In summary, this is an 89-year-old female patient who came in with fatigue, diffuse weakness for the past 3 weeks. According to her , the patient has been sleeping about 90% of the time at home and has less appetite than usual, but otherwise alert and responsive. She has had also multiple falls over the last several months, but none acutely. Her lab work is significant for what seemed to be dehydration, hyponatremia and mild hyperkalemia. PLAN: My plan is to start her on IV fluid in the form of normal saline at 100 mL per hour. I will check also her CK, sed rate, CRP and T3, T4, free T4 as well as morning cortisol and decide further management accordingly. DAYSI DR: Victoria TID: [id number]
[2021-05-01] MEDS ORDERED: GABA300C2 PO (20:05)
[2021-05-01 20:11] VITALS: BP 157/70
[2021-05-01] MEDS: GABAPENTIN 300 MG CAPSULE. PO SCH (21:21)
[2021-05-01 23:24] VITALS: BP 147/79
[2021-05-02] MEDS ORDERED: ASPI325T8 PO (00:16)
[2021-05-02] MEDS ORDERED: MULT-245 PO (00:16)
[2021-05-02] MEDS ORDERED: MECL-75 PO (00:39)
[2021-05-02] MEDS ORDERED: ALBU2.5V8 IH (00:39)
[2021-05-02] MEDS ORDERED: FLUT16SP21 NS (00:39)
[2021-05-02] MEDS ORDERED: LEVO88TA4 PO (00:39)
[2021-05-02] MEDS ORDERED: NYST1000 PO (00:39)
[2021-05-02] MEDS ORDERED: DICL100G28 TP (00:39)
[2021-05-02] MEDS ORDERED: MECLIZINE 12.5 MG TABLET. PO PRN (01:00)
[2021-05-02] MEDS: IV NORMAL SALINE 1,000ML 1,000 ML IV SCH ×2 (02:40→14:23)
[2021-05-02] MEDS: LEVOTHYROXINE 88 MCG TABLET PO SCH (05:10)
[2021-05-02 05:16] VITALS: BP 159/78
[2021-05-02 07:22] LABS: CALCIUM 8.9 mg/dL (8.5-10.1); CREATININE 1.3 mg/dL (0.6-1.0); GFR 38.6; POTASSIUM 4.4 mmol/L (3.5-5.1)
[2021-05-02] MEDS: FLUTICASONE 50MCG/NASAL SPRAY 16GM BOTTLE. NS SCH ×2 (09:00→21:00)
[2021-05-02] MEDS: NYSTATIN 100,000 UNITS/ML ORAL SUSPENSION 60ML BOTTLE. PO SCH ×4 (09:14→21:00)
[2021-05-02] MEDS: DICLOFENAC SODIUM 1% TOPICAL GEL 100GM TUBE. TP SCH ×2 (09:15→21:00)
[2021-05-02] MEDS: MULTIVITAMIN with MINERAL TABLET. PO SCH (09:15)
[2021-05-02] MEDS: ASPIRIN 325 MG TABLET PO SCH (09:15)
[2021-05-02] MEDS: GABAPENTIN 300 MG CAPSULE. PO SCH ×2 (09:15→22:36)
[2021-05-02 10:13] VITALS: BP 109/67
--- NOTE | 2021-05-02 11:08 | RAD ---
EXAM: Bilateral lower extremity venous Doppler sonogram. HISTORY: Pain and swelling. TECHNIQUE: Floyd scale and color Doppler sonographic evaluation of the bilateral lower extremity veins with spectral waveform analysis was performed. FINDINGS: There is normal color flow, normal compressibility and there are normal spectral waveforms in the common femoral, superficial femoral, popliteal, posterior tibial and greater saphenous veins. IMPRESSION: No Doppler evidence of lower extremity deep venous thrombosis. Electronically signed by: Ivana Alfonso MD (05/02/2021 11:06 AM) [id number]
[2021-05-02 12:17] LABS: FREE T4 1.78 ng/dL (0.76-1.46)
[2021-05-02 13:46] VITALS: BP 131/74
--- NOTE | 2021-05-02 14:18 | RAD ---
XR CHEST 1V 05/02/2021 1:43 PM INDICATION: Worsening hypoxia COMPARISON: 05/01/2021 TECHNIQUE: Portable frontal view of the chest is provided. FINDINGS: The cardiomediastinal silhouette is within normal limits. Right hilar prominence appears stable. Medicine Aide garrison interstitial changes are noted. Surgical clips identified in the right axilla. There are no significant pleural effusions. There is no pulmonary vascular congestion. No pneumothora x. No suspicious osseous abnormality. IMPRESSION: No new airspace consolidation. Chronic interstitial changes with right hilar prominence which may reflect lymphadenopathy or vascula r prominence. Electronically signed by: Clemencia Dan MD (05/02/2021 2:15 PM) [id number]
[2021-05-02 19:51] VITALS: BP 138/77
[2021-05-02 21:11] LABS: THYROXINE 6.3 ug/dL (4.5-12.0)
--- NOTE | 2021-05-02 22:40 | PN ---
DATE: 05/02/2021 SUBJECTIVE: The patient is resting, slightly propped up, is sleepy but arousable. Complaining that she is very cold. Her heart rate was high, sitting in bed up to 120 beats per minute. PHYSICAL EXAMINATION: GENERAL: When examining her, there was no pallor, jaundice, or cyanosis. No lymphadenopathy, no thyromegaly, no jugular venous distention. No limb edema. VITAL SIGNS: Her heart rate was 118, blood pressure was 159/78, temperature was 98.9, respiratory rate was 16, and oxygen saturation was 95%, although most recent measurement was only 83%, and was started on 2 liters of oxygen via nasal cannula. HEAD, EYES, EARS, NOSE, AND THROAT: Normocephalic, atraumatic. NECK: Supple. HEART: Showed normal first and second heart sounds. No gallop, rub or murmur. CHEST: Showed central trachea, equal bilateral chest expansion, air entry, vesicular breath sounds. I could not appreciate any crepitation or rhonchi. ABDOMEN: Slightly distended, soft, nontender. NEUROLOGIC: She was sleepy, but arousable. She does open her eyes, tracks and responds appropriately. She moves extremities without difficulty. Her intake and output are incompletely recorded. LABORATORY DATA: Her lab work this morning showed a serum sodium of 130, potassium 4.4, chloride 97, bicarbonate 20, anion gap of 13, BUN 44, creatinine 1.3. Estimated GFR was 38 mL per minute. Her glucose 173, calcium was 8.9. Her C-reactive protein was 19 and her TSH was almost undetectable at 0.103. Her urine culture has grown more than 100,000 colony forming units per mL of gram-negative rods. The identification and sensitivity is still pending. ASSESSMENT AND PLAN: This is an 89-year-old female patient who presented to the Emergency Room with abnormal labs as well as fatigue and diffuse weakness that has been going on for the last 3 weeks. Her stated that she has been sleeping about 90% of the time at home. Her appetite is poor, but otherwise alert and responsive. She also has reported several intermittent falls over the last several months. Her lab work showed that she is definitely dehydrated. She has hyponatremia and hyperkalemia that has resolved. Her TSH is almost undetectable. Her urine culture has grown more than 100,000 colony forming units per mL of gram-negative rods, the identification and sensitivity is still pending. PLAN: My plan is to arrange for her to have a chest x-ray, a 12-lead EKG as she might be in atrial fibrillation with rapid ventricular response. We will decide the further management accordingly. MADELYN DR: Victoria TID: [id number]
[2021-05-02 23:20] VITALS: BP 148/81
[2021-05-03] MEDS: IV NORMAL SALINE 1,000ML 1,000 ML IV SCH (04:23)
[2021-05-03 07:34] LABS: CALCIUM 8.3 mg/dL (8.5-10.1); GFR 52.2; POTASSIUM 4.2 mmol/L (3.5-5.1)
[2021-05-03] MEDS: LEVOTHYROXINE 88 MCG TABLET PO SCH (08:21)
[2021-05-03] MEDS: ASPIRIN 325 MG TABLET PO SCH (08:21)
[2021-05-03] MEDS: MULTIVITAMIN with MINERAL TABLET. PO SCH (08:21)
[2021-05-03] MEDS: GABAPENTIN 300 MG CAPSULE. PO SCH (08:21)
[2021-05-03] MEDS: NYSTATIN 100,000 UNITS/ML ORAL SUSPENSION 60ML BOTTLE. PO SCH ×4 (08:25→20:18)
[2021-05-03] MEDS: FLUTICASONE 50MCG/NASAL SPRAY 16GM BOTTLE. NS SCH ×2 (09:57→20:17)
[2021-05-03] MEDS: DICLOFENAC SODIUM 1% TOPICAL GEL 100GM TUBE. TP SCH ×2 (09:57→20:19)
[2021-05-03 11:38] VITALS: BP 121/68
[2021-05-03] MEDS ORDERED: IOHEXOL 350 MG/ML 100 ML VIAL. IV ONE ×2 (14:30→15:30)
[2021-05-03] MEDS ORDERED: CONTRAST GIVEN. MC PRN (14:45)
[2021-05-03 16:01] VITALS: BP 122/64
--- NOTE | 2021-05-03 16:58 | RAD ---
CT HEAD/BRAIN WO Clinical indications: Reason: altered mental status with recurrent falls COMPARISON: September 07, 2020. Technique: Noncontrast axial cross sectional scanning of the head was performed. PQRS compliance Statement One or more of the following individualized dose reduction techniques were utilized for this study: 1. Automated exposure control 2. Adjustment of the mA and/or kV according to patient size 3. Use of iterative reconstruction technique Findings: No acute intracranial hemorrhage or midline shift or mass-effect or extra-axial fluid colle ction is seen. Chronic ventriculomegaly is seen which is unchanged. Again seen is severe bilateral pe riventricular white matter hypodensity which may represent chronic small vessel ischemic disease or c ould be seen with transependymal flow of CSF secondary to chronic normal pressure hydrocephalus. This is unchanged. No new focal hypodense area or sulci effacement is seen to indicate an acute infarct o r edema radiographically. No skull fracture or pneumocephalus is seen. No opacification of the masto id sinuses or the middle ear cavities is seen. There is mild mucosal thickening of the posterior righ t maxillary sinus. This is chronic. The maxillary sinuses are not completely seen in this study. IMPRESSION: No new intracranial abnormality is seen. See discussion above. Electronically signed by: Fidencio Rubi MD (05/03/2021 4:56 PM) [id number]
--- NOTE | 2021-05-03 17:04 | RAD ---
Exam: CT of chest with contrast INDICATION: Hypoxia, shortness of breath TECHNIQUE: Sequential axial images through the chest obtained following the administration of 75 mL o f Isovue-370 IV contrast. Sagittal and coronal reformatted images were reconstructed from the axial d conrado and reviewed. Exposure: One or more of the following in the visualized dose reduction techniques were utilized for this examination: 1. Automated exposure control 2. Adjustment of the MA and/or KV according to patient size 3. Use of iterative of reconstructive technique Comparisons: None FINDINGS: Utilized portions of the thyroid are unremarkable. No enlarged mediastinal lymph nodes are identified . Heart size is normal. No pericardial effusion. Thoracic aorta has a normal course and caliber. Pulmon scooter artery is not enlarged. There is filling defects noted within segmental branches of the right low er lobe. Airways are patent. There is patchy areas of tree-in-bud consolidation noted in the right lower lobe and upper lobe. No pneumothorax. No pleural effusion or thickening Visualized upper abdomen is unremarkable. No suspicious osseous lesions or acute fractures. IMPRESSION: 1. Segmental pulmonary embolus noted within the right lower lobe. No evidence for right heart strain . 2. Patchy tree-in-bud nodularity noted in the right upper and middle lobe favored to be infectious o r inflammatory in etiology. Electronically signed by: Jerry Gale MD (05/03/2021 5:02 PM) [facility]
[2021-05-03] MEDS ORDERED: ENOXAPARIN ** NOTE DOSE ** SYRINGE SQ SCH (19:00)
[2021-05-03] MEDS: LACTOBACILLUS RHAMNOSUS GG 1 CAPSULE. PO SCH (20:19)
[2021-05-03 20:23] VITALS: BP 145/70
--- NOTE | 2021-05-03 22:34 | PN ---
DATE: 05/03/2021 SUBJECTIVE: The patient continues to be extremely lethargic and sleepy, but denies otherwise any other complaint. Her urine culture has grown more than 100,000 colony forming units per mL of Gram-negative rods identified as Escherichia coli sensitive to almost all antibiotics and she is on ceftriaxone to which it is sensitive. Other abnormal findings on her lab work showed that her TSH was undetectable at 0.103 and her free T4 was high at 1.78, although her total T4 and total T3 are on the lower side. When she arrived to the hospital, she was also hyponatremic, hyperkalemic; however, her serum sodium is normalized now up to 133, potassium is down to 4.2, her kidney function also has improved. Creatinine came down from 1.6 to 1.21. According to her daughter, apparently has been declining since they started her on gabapentin. When I saw her this afternoon, she was sleeping comfortably in bed, in no apparent distress. On questioning her, denied any complaint. PHYSICAL EXAMINATION: GENERAL: There was no pallor, jaundice, cyanosis or thyromegaly. No jugular venous distention. No limb edema. VITAL SIGNS: Her heart rate was 76, blood pressure was 121/68, temperature was 97.7, respiratory rate was 16 and oxygen saturation was 96%. HEAD, EYES, EARS, NOSE AND THROAT: Normocephalic, atraumatic. NECK: Supple. HEART: Showed normal first and second heart sounds, no gallop, rub or murmur. CHEST: Clear to auscultation, no crepitation or rhonchi. ABDOMEN: Distended, soft, nontender. NEUROLOGIC: She was sleepy, but arousable. All cranial nerves intact. She moves extremities without difficulty. According to nursing staff, she was able to walk with a walker to the bathroom this morning. Her intake over the last 24 hours was 1170, no output was recorded. LABORATORY DATA: Her chemistry this morning showed a serum sodium 133, potassium 4.2, chloride 101, bicarbonate 22, anion gap of 10, BUN 26, creatinine 1, estimated GFR was 52 mL per minute. Her glucose 147, calcium was 8.3. Her beta natriuretic peptide was 2500. Her serum triglycerides was 154. Total cholesterol 171, LDL was 110, VLDL was 30, HDL was 31 and the ratio was 5. Her free T4 was 1.78. Total T4 was 6.3 and total T3 was 59. ASSESSMENT: 1. Altered mental status. The patient continued to be extremely lethargic and sleepy. 2. Urinary tract infection with growth of more than 100,000 unit per mL of Gram-negative rods identified as Escherichia coli. 3. The patient is clinically thyrotoxic. Her free T4 was 1.78. 4. Acute kidney injury, resolved. Her creatinine came down from 1.6 to 1. 5. Hyponatremia, improved. Her sodium is up to 133. 6. Hyperkalemia, resolved. Potassium today is 4.2. PLAN: My plan is to discontinue her gabapentin. Discontinue IV fluid. I did discontinue also her levothyroxine as well as gabapentin. I will arrange for her to have a CT scan of the head and CT angio of the chest, and continue with IV ceftriaxone for now. She probably will need eventually to be in a [facility] facility unless her CT scan showed some abnormal findings that might explain her excessive sleepiness. OSCAR DR: Victoria TID: [id number]
[2021-05-03 23:34] VITALS: BP 158/77
[2021-05-04 06:04] VITALS: BP 135/66
[2021-05-04 06:33] LABS: CALCIUM 8.4 mg/dL (8.5-10.1); CREATININE 0.9 mg/dL (0.6-1.0)
[2021-05-04] MEDS: NYSTATIN 100,000 UNITS/ML ORAL SUSPENSION 60ML BOTTLE. PO SCH ×2 (07:49→15:52)
[2021-05-04] MEDS: LACTOBACILLUS RHAMNOSUS GG 1 CAPSULE. PO SCH (07:50)
[2021-05-04] MEDS: MULTIVITAMIN with MINERAL TABLET. PO SCH (07:50)
[2021-05-04] MEDS: FLUTICASONE 50MCG/NASAL SPRAY 16GM BOTTLE. NS SCH (07:50)
[2021-05-04] MEDS: ASPIRIN 325 MG TABLET PO SCH (07:50)
[2021-05-04] MEDS: DICLOFENAC SODIUM 1% TOPICAL GEL 100GM TUBE. TP SCH (07:51)
[2021-05-04 11:30] VITALS: BP 115/75
--- NOTE | 2021-05-04 15:59 | DISCH ---
HOME HEALTH DISCHARGE/MEDS DISCHARGE INFORMATION: Discharge Date: May 04, 2021 Final Diagnosis: acute kidney injury pulmonary emboli weakness Condition on Discharge: Stable CODE STATUS: Code Status: Full HOME HEALTH: Face to Face: I certify this patient is under my care and that I, or a nurse practitioner or physician's behavioral modification assistant working with me, had a face to face encounter that meets the physician face to face encounter requirements with this patient on 05/04/2021 Medical Condition(s): Other Group Home For: Admin/Educate Injections Physical Therapy For: Evalulation/Treatment Occupational Therapy For: Evaluation/Treatment POST DISCHARGE ORDERS: Activity Instructions for Disc: Resume previous activity DIET AFTER DISCHARGE: Regular CERTIFICATION STATEMENT: Certification Statement: Based on the above finding, I certify that this patient is confined to the home and needs intermittent mcc care, physical therapy and/or speech therapy, or continues to need occupational therapy.~ This patient is under my care, and I have initiated the establishment of the plan of care.~ This patient will be followed by myself or a community physician who will periodically review the plan of care. DISCHARGE MEDICATIONS: Home Meds Reported Medications Albuterol Sulfate (VENTOLIN HFA INHALER) 18 Gm Hfa.aer.ad, 1 PUFF IH PRN Q4HRS PRN for FOR ASTHMA, EACH 0 Refills 05/02/21 Fluticasone Propionate (FLUTICASONE PROPIONATE NASAL SPRAY) 16 Gm [place].susp, 2 SPR NS BID for ALLERGIES, #1 INHALER 11 Refills 05/02/21 Levothyroxine Sodium (LEVOTHYROXINE SODIUM) 88 Mcg Tablet, 1 TAB PO DAILY for HYPOTHYRIOD, #30 TAB 5 Refills 05/02/21 Nystatin (NYSTATIN) 100,000 Unit/1 Ml Oral.susp, 4 ML PO QID for FUNGAL/YEAST INFECTION, #200 ML 05/02/21 Diclofenac Sodium (Diclofenac Sodium) 100 Gm Gel..gram., 1 MARCO TP BID for PAIN for 21 Days, #100 GM 0 Refills 05/02/21 Meclizine Hcl (MECLIZINE HCL) 25 Mg Tablet, 1 TAB PO PRN Q4HRS PRN for DIZZYNESS, #30 TAB 05/02/21 Multivitamin (MULTI VITAMIN DAILY) 1 Each Tablet, 1 TAB PO DAILY for VITAMIN SUP for 30 Days, #30 TAB 0 Refills 05/02/21 Aspirin (ASPIRIN) 325 Mg Tablet, 1 TAB PO DAILY for VTE, #30 TAB 5 Refills 05/02/21 Gabapentin (Neurontin) 300 Mg Capsule, 300 MG PO BID for NERVE PAIN, CAP 05/01/21 Discontinued Reported Medications Levothyroxine Sodium (LEVOTHYROXINE SODIUM) 125 Mcg Tablet, 0.5 TAB PO DAILY for THYROID SUPPLEMENT LAST DOSE GIVEN: DATE: TODAY TIME: BEFORE BREAKFAST NEXT DOSE DUE: DATE: TOMORROW TIME: BEFORE BREAKFAST 02/22/16 Cephalexin (KEFLEX) 500 Mg Capsule, 500 MG PO DAILY for chronic uti LAST DOSE GIVEN: DATE: TODAY TIME: AM NEXT DOSE DUE: DATE: TOMORROW TIME: AM 02/21/16 Acetaminophen (TYLENOL EXTRA STRENGTH) 500 Mg Tablet, 500 MG PO PRN Q6-8HRS PRN for PAIN LAST DOSE GIVEN: DATE: TIME: NEXT DOSE DUE: DATE: TODAY TIME: IF NEEDED 02/21/16 Nitroglycerin (NITROGLYCERIN SubLingual) 0.4 Mg Tab.subl, 0.4 MG SL PRN Q5MIN PRN for CHEST PAIN LAST DOSE GIVEN: DATE: TIME: NEXT DOSE DUE: DATE: TODAY TIME: IF NEEDED 02/21/16 Albuterol Sulfate (ALBUTEROL SULFATE NEB SOLN) 0.63 Mg/3 Ml Vial.neb, 0.63 MG NEB PRN Q6-8HRS PRN for SHORTNESS OF BREATH LAST DOSE GIVEN: DATE: TIME: NEXT DOSE DUE: DATE: TODAY TIME: IF NEEDED 02/21/16 Meclizine Hcl (MECLIZINE HCL) 12.5 Mg Tablet, 12.5 MG PO TID PRN for DIZZINESS LAST DOSE GIVEN: DATE: TIME: NEXT DOSE DUE: DATE: TODAY TIME: IF NEEDED 02/21/16 Aspirin (ASPIRIN) 325 Mg Tablet, 325 MG PO DAILY for heart health LAST DOSE GIVEN: DATE: TODAY TIME: AM NEXT DOSE DUE: DATE: TOMORROW TIME: AM 02/21/16 Multivits-Min/Fa/Lycopene/Lut (CENTRUM SILVER TABLET) 1 Each Tablet, 1 EACH PO DAILY for SUPPLEMENT LAST DOSE GIVEN: DATE: TODAY NEXT DOSE DUE: DATE: TOMORROW TIME: AM 02/21/16 Garlic (GARLIC) 1 Each Tablet, 1 EACH PO DAILY for heart health LAST DOSE GIVEN: DATE: TIME: NEXT DOSE DUE: DATE: RESUME TODAY TIME: 02/21/16 Gabapentin (NEURONTIN ) 300 Mg Capsule, 300 MG PO TID for PAIN LAST DOSE GIVEN: DATE: TODAY TIME: AM NEXT DOSE DUE: DATE: TODAY TIME: AFTERNOON 02/21/16 Amlodipine Besylate (AMLODIPINE BESYLATE) 5 Mg Tablet, 5 MG PO DAILY for HIGH BLOOD PRESSURE LAST DOSE GIVEN: DATE: TODAY TIME: AM NEXT DOSE DUE: DATE: TOMORROW TIME: AM 02/21/16 Lisinopril (LISINOPRIL) 40 Mg Tablet, 40 MG PO DAILY for HIGH BLOOD PRESSURE LAST DOSE GIVEN: DATE: TODAY NEXT DOSE DUE: DATE: TOMORROW TIME: AM 02/21/16 Nebivolol Hcl (BYSTOLIC) 10 Mg Tablet, 10 MG PO DAILY for HIGH BLOOD PRESSURE LAST DOSE GIVEN: DATE: TODAY TIME: AM NEXT DOSE DUE: DATE: TOMORROW TIME: AM 02/21/16 HARRISON GARCIA MD May 04, 2021 15:59
== END 2021-05-04 16:42 | disposition home health service (06) | DRG 682 ==
LOC: ER 09:58 → 1 SOUTH 14:38
PROVIDERS: ADMIT Internal Medicine; ATTEND Internal Medicine
DX: N17.0 Acute kidney failure with tubular necrosis (principal); G93.41 Metabolic encephalopathy; N39.0 Urinary tract infection, site not specified; E87.1 Hypo-osmolality and hyponatremia; B96.20 Unspecified Escherichia coli [E. coli] as the cause of diseases classified elsewhere; E03.9 Hypothyroidism, unspecified; E78.5 Hyperlipidemia, unspecified; E86.0 Dehydration; E87.5 Hyperkalemia; I10 Essential (primary) hypertension; I25.10 Atherosclerotic heart disease of native coronary artery without angina pectoris; J44.9 Chronic obstructive pulmonary disease, unspecified; Z96.642 Presence of left artificial hip joint; E11.42 Type 2 diabetes mellitus with diabetic polyneuropathy; Z85.3 Personal history of malignant neoplasm of breast; Z85.828 Personal history of other malignant neoplasm of skin; Z90.11 Acquired absence of right breast and nipple; Z91.81 History of falling; Z93.3 Colostomy status; Z95.5 Presence of coronary angioplasty implant and graft; Z98.41 Cataract extraction status, right eye; Z98.42 Cataract extraction status, left eye; Z88.1 Allergy status to other antibiotic agents; Z88.5 Allergy status to narcotic agent; Z88.0 Allergy status to penicillin
CPT/HCPCS: 36415; 70450; 71045; 71275; 80048; 80061; 81001; 82533; 82550; 83735; 83880; 84436; 84439; 84443; 84480; 84484; 85025; 85379; 85651; 86140; 87077; 87086; 87186; 93005; 93970; J0696; J1650; Q9967; 97535; 99285-25; J7030

== ENCOUNTER → 2021-06-19 | Outpatient (CLI) | payer MEDICARE, BC ==
[~2021-06-19] MED LIST changes: +ALBU2.5V8 IH; +DICL100G28 TP; +FLUT16SP21 NS; +GABA300C2 PO; +LEVO88TA4 PO; +MECL-75 PO; +MULT-245 PO; +NYST1000 PO
--- NOTE | 2021-06-19 15:17 | RAD ---
EXAM: Chest, 2 views. HISTORY: Pneumonia. COMPARISON: 05/03/2021 FINDINGS: 2 views of the chest are obtained. There is no infiltrate, pleural effusion or pneumothorax . There is mild biapical pleural-parenchymal scarring. There is emphysema. There is thoracic kyphosis . There is an IVC filter. There is a stable prominent cardiac silhouette. There are right axillary cl ips. IMPRESSION: 1. Pulmonary emphysema and stable prominent cardiac silhouette. 2. No acute pulmonary finding. Note is made that tree-in-bud nodularity demonstrated on the prior CT dated 05/03/2021 is not appreciated radiographically. Electronically signed by: Ivana Alfonso MD (06/19/2021 3:14 PM) [id number]
== END ==
LOC: RAD 13:04
PROVIDERS: ATTEND Specialist
DX: J43.9 Emphysema, unspecified (principal); J18.9 Pneumonia, unspecified organism; M40.294 Other kyphosis, thoracic region; Z95.828 Presence of other vascular implants and grafts
CPT/HCPCS: 71046